=== PATIENT | female | born 1990 | race Hispanic/Latino ===

== ENCOUNTER 2023-06-26 14:06 | Day surgery (SDC) | payer BC ==
[2023-06-26] MEDS ORDERED: Cyclobenzaprine 10 MG TAB PO SCH (14:30)
[2023-06-26 14:31] VITALS: BMI 43.0
[2023-06-26 15:30] LABS: Bilirubin Neg (Negative); Blood, Urine Negative (Negative); Clarity Clear (Clear); Glucose, Urine (Dipstick) Normal (Negative); Ketone, Urine 15 mg/dL (Negative); Leukocyte Negative (Negative); Nitrite Negative (Negative); Protein, Urine (Dipstick) 15 mg/dl (Neg-Trace)
[2023-06-26 15:51] LABS: Bacteria/HPF 1+ HPF (None Seen); CAUTI Indications for Culture Dysuria,urgency,freq; RBC/HPF 0-3 HPF (0-3); WBC/HPF 0-3 HPF (0-3)
[2023-06-26 15:53] LABS: Urine Culture Reflex No No
== END 2023-06-26 16:15 | disposition home or self-care (01) ==
LOC: CSHLD/OP 14:06
PROVIDERS: ATTEND Obstetrics & Gynecology
DX: O99.891 Other specified diseases and conditions complicating pregnancy (principal); R10.2 Pelvic and perineal pain; R82.71 Bacteriuria; Z3A.28 28 weeks gestation of pregnancy; Z79.82 Long term (current) use of aspirin; Z88.2 Allergy status to sulfonamides; Z88.1 Allergy status to other antibiotic agents
CPT/HCPCS: 81001

== ENCOUNTER 2023-07-31 16:18 | Day surgery (SDC) | payer BC ==
[2023-07-31] MEDS ORDERED: hydrALAZINE 20 MG/ML VIAL SLOW IVP PRN (17:02)
[2023-07-31 17:44] LABS: Bilirubin Neg (Negative); Blood, Urine Negative (Negative); Clarity Clear (Clear); Glucose, Urine (Dipstick) Normal (Negative); Ketone, Urine Negative (Negative); Leukocyte 25 (Negative); Nitrite Negative (Negative); Protein, Urine (Dipstick) Negative (Neg-Trace); Specific Gravity, Urine 1.015 (1.005-1.030); Urobilinogen Normal mg/dL (Less than 2)
[2023-07-31 17:45] VITALS: BMI 40.3
[2023-07-31 17:56] LABS: Bacteria/HPF 1+ HPF (None Seen); CAUTI Indications for Culture Pregnancy; Mucous/LPF 1+ LPF (<2+); RBC/HPF None Seen HPF (0-3); Squamous Epithelial 0-3 HPF (0-3); Urine Culture Reflex Yes Yes; WBC/HPF 0-3 HPF (0-3)
[2023-07-31] MEDS ORDERED: Acetaminophen 325 MG TAB PO SCH (18:15)
== END 2023-07-31 19:57 | disposition home or self-care (01) ==
LOC: CSHLD/OP 16:18
PROVIDERS: ATTEND Obstetrics & Gynecology
DX: O99.891 Other specified diseases and conditions complicating pregnancy (principal); O23.593 Infection of other part of genital tract in pregnancy, third trimester; B37.31 Acute candidiasis of vulva and vagina; R10.9 Unspecified abdominal pain; Z88.2 Allergy status to sulfonamides; Z88.1 Allergy status to other antibiotic agents; Z88.8 Allergy status to other drugs, medicaments and biological substances; Z79.82 Long term (current) use of aspirin; Z79.899 Other long term (current) drug therapy
CPT/HCPCS: 76819; 81001; 87086; 87480; 87510; 87660; 99283

== ENCOUNTER 2023-09-02 23:24 | Inpatient (IN) | payer BC, OTHER ==
[2023-09-02 23:57] VITALS: BMI 46.3
[2023-09-03] MEDS ORDERED: Carboprost 250 MCG/ML AMP IM PRN (00:57)
[2023-09-03] MEDS ORDERED: fentaNYL 50 mcg/mL 1 mL Vial SLOW IVP PRN (00:57)
[2023-09-03] MEDS ORDERED: Promethazine HCl 25 MG/ML VIAL IM PRN ×2 (00:57→08:11)
[2023-09-03] MEDS ORDERED: Ibuprofen 800 MG TAB PO PRN (00:57)
[2023-09-03] MEDS ORDERED: hydrALAZINE 20 MG/ML VIAL SLOW IVP PRN ×4 (00:57→17:51)
[2023-09-03] MEDS ORDERED: Lidocaine 1% (PF) 30 ML VIAL SC PRN ×2 (00:57→08:32)
[2023-09-03] MEDS ORDERED: Ondansetron PF 4 MG/2 ML Vial IVP PRN ×2 (00:57→08:11)
[2023-09-03] MEDS ORDERED: Tranexamic Acid 1,000 MG/10 ML VIAL IVP PRN (00:57)
[2023-09-03] MEDS ORDERED: HYDROcodone/Acetaminophen 5/325 mg Tablet PO PRN ×2 (00:57)
[2023-09-03] MEDS ORDERED: Misoprostol 200 MCG TAB PR PRN (00:57)
[2023-09-03] MEDS ORDERED: Diphenoxylate HCl/Atropine Tablet PO PRN ×2 (00:57)
[2023-09-03] MEDS ORDERED: Oxytocin 30 units/NS 500 ML 500 ML IV SCH (01:00)
[2023-09-03] MEDS ORDERED: Labetalol HCl 100 MG/20 ML VIAL SLOW IVP PRN ×2 (01:07)
[2023-09-03] MEDS: Lactated Ringer's 1,000 ML IV SCH (01:40)
[2023-09-03 01:42] LABS: #Basophils 0.1 10x3/uL (0.0-0.2); #Eosinphils 0.5 10x3/uL (0.0-0.5); #Monocytes 0.8 10x3/uL (0.0-1.1); #Neutrophils 5.9 10x3/uL (1.5-8.4); %Basophils 0.6 % (0.0-2.0); %Eosinophils 4.4 % (0.0-6.0); %Lymphocytes 34.7 % (18.0-47.0); %Monocytes 6.9 % (0.0-10.0); %Neutrophils 52.9 % (40.0-75.0); Hematocrit 39.5 % (34.9-44.5); Hemoglobin 13.7 g/dL (12.0-15.5); Mean Corpuscular HGB CONC 34.7 g/dL (32.0-36.0); Mean Corpuscular Hemoglobin 32.2 pg (27.0-33.0); Mean Corpuscular Volume 92.7 fl (81.6-98.3); Mean Platelet Volume 12.2 fl (7.4-10.4); Platelet Count 257 10x3/uL (150-450); Red Blood Cell (RBC) Count 4.26 10x6/uL (3.90-5.03); White Blood Cell (WBC) Count 11.2 10x3/uL (3.5-10.5)
[2023-09-03] MEDS: Acetaminophen 500 MG TAB PO PRN (01:52)
[2023-09-03 01:53] LABS: Creatinine, Urine 35.76 mg/dL (47-110); Protein, Urine Random Quant Less than 10 mg/dL (1-14)
[2023-09-03 01:54] LABS: ALT (SGPT) 14 U/L (8-55); AST (SGOT) 16 U/L (5-34); Albumin 3.3 g/dL (3.5-5.0); Alkaline Phosphatase 180 U/L (40-110); Anion Gap 13 mmol/L (10-20); BUN (Urea Nitrogen) 4 mg/dL (7.0-18.7); Bilirubin, Total 0.5 mg/dL (0.2-1.2); Calc. Creatinine Clearance 228 mL/min (70-130); Calcium 8.7 mg/dL (7.8-10.44); Carbon Dioxide 22 mmol/L (22-29); Chloride 107 mmol/L (98-107); Estimated GFR 122; Globulin 3.4 g/dL (2.4-3.5); Glucose 85 mg/dL (70-105); Potassium 3.8 mmol/L (3.5-5.1); Protein, Total 6.7 g/dL (6.0-8.3); Sodium 138 mmol/L (136-145)
[2023-09-03 02:11] LABS: Hep B Surf Ag - L&D Non-Reactive S/CO (NonReactive)
[2023-09-03 02:12] LABS: Syphilis Antibody Nonreactive (Nonreactive); Syphilis Antibody Index 0.07 S/CO (<1.00 Non-Reactive)
[2023-09-03] MEDS: Misoprostol 100 MCG TAB VAG SCH (02:13)
[2023-09-03] MEDS: Oxytocin 30 units/NS 500 ML 500 ML IV SCH (06:14)
[2023-09-03] MEDS: fentaNYL/Ropivacaine Epidural 100 ML ONE (07:52)
[2023-09-03] MEDS ORDERED: Lactated Ringer's 500 ML IV PRN (08:11)
[2023-09-03] MEDS ORDERED: ePHEDrine Sulfate 50 MG/10 ML VIAL SLOW IVP PRN (08:11)
[2023-09-03] MEDS ORDERED: diphenhydrAMINE 50 MG/ML VIAL IVP PRN (08:11)
[2023-09-03] MEDS ORDERED: Naloxone HCl 0.4 mg/ml Vial IVP PRN ×2 (08:11)
[2023-09-03] MEDS ORDERED: Moisturizing Cream (Eucerin) 113 GM JAR TOP PRN (08:11)
[2023-09-03] MEDS ORDERED: Acetaminophen 325 MG TAB PO PRN (08:11)
[2023-09-03] MEDS ORDERED: Communication Order-Pharmacy FS SCH (08:15)
[2023-09-03] MEDS ORDERED: Penicillin G Potassium 5 MILL.UNITS VIAL ONE (08:31)
[2023-09-03] MEDS: Penicillin G Potassium 5 MILL.UNITS in Sodium Chloride 0.9% 100 ML IVPB SCH (09:23)
[2023-09-03] MEDS: Penicillin G 2.5 MILL.units 2.5 MILL.UNITS in Premix 1 BAG IVPB SCH (13:35)
[2023-09-03] MEDS ORDERED: Bupivacaine 0.25% HCL 30 ML VIAL ONE (14:00)
[2023-09-03] MEDS ORDERED: fentaNYL 50 mcg/mL 1 mL Vial ONE (14:35)
[2023-09-03] MEDS ORDERED: Bisacodyl 10 MG SUPP PR PRN (17:51)
[2023-09-03] MEDS ORDERED: Lanolin Ointment 7 GM TUBE TOP PRN (17:51)
[2023-09-03] MEDS ORDERED: Benzocaine-Menthol 82.5 ML CAN TOP PRN (17:51)
[2023-09-03] MEDS ORDERED: Boostrix 0.5 ML (Tdap) VIAL (>/=7 yrs of age) IM ONE (17:51)
[2023-09-03] MEDS ORDERED: Preparation H Ointment 28 GM TUBE PR PRN (17:51)
[2023-09-03] MEDS ORDERED: Milk Of Magnesia 30 ML UDCUP PO PRN (17:51)
[2023-09-04] MEDS: Ibuprofen 800 MG TAB PO SCH (05:12)
[2023-09-04] MEDS: traMADol HCl 50 MG TAB PO PRN (05:12)
[2023-09-04] MEDS: Docusate 100 MG CAP PO SCH (05:24)
[2023-09-04] MEDS: Prenatal Vitamin 1 TAB PO SCH (08:45)
[2023-09-04] MEDS: Ferrous Sulfate 325 MG TAB PO SCH (08:45)
[2023-09-04 20:24] VITALS: BP 134/77; TEMP 98.4
== END 2023-09-04 21:02 | disposition home or self-care (01) | DRG 807 ==
LOC: CSHLD/OP 23:24 → CSHLD 09-03 00:55 → CSHPP 09-03 20:10
PROVIDERS: ADMIT Obstetrics & Gynecology; ATTEND Obstetrics & Gynecology
PROC: 10E0XZZ Delivery of Products of Conception, External Approach (ICD-10-PCS; principal; 2023-09-03)
PROC: 3E0P7VZ Introduction of Hormone into Female Reproductive, Via Natural or Artificial Opening (ICD-10-PCS; 2023-09-03)
PROC: 3E033XZ Introduction of Vasopressor into Peripheral Vein, Percutaneous Approach (ICD-10-PCS; 2023-09-03)
DX: O14.94 Unspecified pre-eclampsia, complicating childbirth (principal); Z37.0 Single live birth; Z3A.37 37 weeks gestation of pregnancy
CPT/HCPCS: 51702; 80053; 82570; 84156; 85025; 86780; 86850; 86900; 86901; 87340; 99285; J0665; J2540; J2590; J3490; J7120